=== PATIENT | male | born 1950 | race Two or more races ===

== ENCOUNTER 2017-06-18 13:08 | Emergency (ER) | payer MEDICARE ==
[~2017-06-18] VITALS: Ht 172.7 cm; Wt 59.0 kg
[2017-06-18 23:38] VITALS: BP 101/61
== END 2017-06-18 23:38 | disposition home or self-care (01) ==
LOC: ER 14:29
DX: Z46.82 Encounter for fitting and adjustment of non-vascular catheter (principal); Z93.3 Colostomy status; Z90.49 Acquired absence of other specified parts of digestive tract
CPT/HCPCS: 99283; Z7610